=== PATIENT | male | born 1940 | race Caucasian/White ===

== ENCOUNTER → 2025-02-09 | Outpatient (CLI) | payer MEDICARE ==
[~2025-02-09] MED LIST: AEC81 PO; FISH1CAP49 PO; IOHEXOL 350 MG/ML 100ML INFUS..BTL IV ONE; LISI5TAB21 PO; METO25TA6 PO; MULT-660 PO; SPIR25TA6 PO; TAMS0.4C32 PO
== END | disposition home or self-care (01) ==
LOC: RAH 10:44
PROVIDERS: ATTEND Student in an Organized Health Care Education/Training Program
DX: Z53.9 Procedure and treatment not carried out, unspecified reason (principal); Z95.1 Presence of aortocoronary bypass graft
CPT/HCPCS: Q9967

== ENCOUNTER 2025-04-26 09:30 | Day surgery (SDC) | payer MEDICARE ==
[2025-04-23 08:31] LABS: BASOPHILS # (AUTO) 0.07 K/uL (0.00-0.20); BASOPHILS % (AUTO) 1.1 % (0.0-5.0); EOSINOPHILS # (AUTO) 0.18 K/uL (0.00-0.70); EOSINOPHILS % (AUTO) 2.9 % (0.0-8.0); HEMATOCRIT 44.9 % (42-54); IMMATURE GRANULOCYTE ABSOLUTE 0.01 K/uL (0-1); LYMPHOCYTES # (AUTO) 1.5 K/uL (1.0-4.8); LYMPHOCYTES % (AUTO) 24.7 % (21.0-51.0); MEAN CORPUSCULAR HEMOGLOBIN 29.7 pg (27.0-33.0); MEAN CORPUSCULAR HGB CONC 31.6 g/dL (32.0-36.0); MEAN CORPUSCULAR VOLUME 93.9 fL (79-99); MONOCYTES # (AUTO) 0.6 K/uL (0.1-1.0); MONOCYTES % (AUTO) 10.3 % (3.0-13.0); NEUTROPHILS # (AUTO) 3.8 K/uL (1.8-7.7); NEUTROPHILS % (AUTO) 60.8 % (40.0-77.0); PLATELET COUNT (AUTO) 121 K/uL (130-400); RED BLOOD CELL COUNT(AUTO) 4.78 MIL/uL (4.50-6.20); RED CELL DISTRIBUTION WIDTH 13.2 % (11.0-15.5); WHITE BLOOD COUNT (AUTO) 6.2 K/uL (4.8-10.8)
[2025-04-23 08:32] LABS: APPEARANCE,URINE CLOUDY (CLEAR); BILIRUBIN,URINE NEGATIVE (NEGATIVE); COLOR,URINE YELLOW (YELLOW); GLUCOSE, URINE (UA) NEGATIVE (NEGATIVE); KETONES,URINE NEGATIVE (NEGATIVE); LEUKOCYTE ESTERASE ,URINE 500 Leu/uL (NEGATIVE); NITRATE,URINE 2+ (NEGATIVE); OCCULT BLOOD,URINE SMALL (NEGATIVE); PH,URINE 5.5 (5.0-8.0); PROTEIN,URINE 30 mg/dL (NEGATIVE); UROBILINOGEN,URINE 0.2 mg/dL (0.2-1.0)
[2025-04-23 08:38] LABS: ADD UA MICROSCOPIC YES
[2025-04-23 08:41] LABS: BACTERIA,URINE MOD /HPF (None Seen); MUCUS,URINE RARE LPF (None Seen); WBC CLUMP MANY /HPF (0-1); WBC,URINE TNTC /HPF (0-1)
[2025-04-23 08:42] LABS: CREATININE 1.1 mg/dL (0.5-1.3); INR 1.07 (0.85-1.15); POTASSIUM 4.5 mmol/L (3.5-5.1); PROTHROMBIN TIME 11.3 SEC (9.6-11.6)
[2025-04-23 08:43] LABS: PARTIAL THROMBOPLASTIN TIME 27.4 SEC (26.3-35.5)
[2025-04-23 08:57] LABS: B-TYPE NATRIURETIC PEPTIDE 225 pg/mL (0-100)
--- NOTE | 2025-04-23 09:46 | HMCIMG ---
Exam Type: CHEST 1VW Clinical Information: pre-op Comparison: None Findings: The lungs are clear of infiltrates. The heart is enlarged in size. The bony and soft tissue structures of the chest are unremarkable. Left cardiac pacemaker is noted with leads in place. Impression: Clear lungs.
--- NOTE | 2025-04-23 10:10 | NUR ---
RE: UA RESULTS REPORTED UA RESULTS TO DR DIEGO, RECEIVED ORDERS TO CALL IN LEVAQUIN 500 MG PO DAILY X 7 DAYS INTO PATIENT'S PHARMACY AND REPEAT UA ON SATURDAY. CALLED PATIENT AND SPOKE WITH SPOUSE, INFORMED SPOUSE THAT ANTIBIOTIC WAS CALLED INTO PHARMACY FOR PATIENT TO START TAKING FOR UTI. SPOUSE VERBALIZED UNDERSTANDING AND WILL TOPPER PACKER MEDICATION TODAY.
[2025-04-23 10:46] VITALS: BP 157/78; PULSE 60; RESP 18; TEMP 97.6
--- NOTE | 2025-04-23 13:03 | EKG ---
[facility] Test Date: 2025-04-23 Test Time: 08:18:09 Pat Name: [facility] Department: [facility] Room: Gender: M Office Admin: [id number] : [id number] Requested By: Mehrdad DIEGO Order Number: [id number] Reading MD: Felix Moore Measurements Intervals [place] Rate: 60 P: 0 IL: 64 QRS: 203 QRSD: 169 T: -2 QT: 470 QTc: 470 Interpretive Statements Ventricular-paced rhythm Compared to ECG 10/29/2015 04:56:38 Sinus rhythm no longer present Ventricular premature complex(es) no longer present Intraventricular conduction delay no longer present Electronically Signed On 04-24-2025 10:10:28 CDT by Felix Moore Please click the below link to view image of tracing.
[~2025-04-26] VITALS: Ht 170.2 cm; Wt 84.5 kg
[2025-04-26] VITALS (12 sets, daily range): BP systolic 114–164; BP diastolic 48–98; PULSE 62–74; RESP 10–18; TEMP 97.7–98.1
[~2025-04-26 09:30] MED LIST changes: +AMLO-257 PO; +CARV25TA PO; +CHOL100034 PO; -FISH1CAP49 PO; +FLUT15.845 NS; +FLUT1BLS8 IH; -IOHEXOL 350 MG/ML 100ML INFUS..BTL IV ONE; +LISI10TA24 PO; -LISI5TAB21 PO; -METO25TA6 PO; +MONT-39 PO; -MULT-660 PO; +ROSU40TA88 PO; -SPIR25TA6 PO; +TAMS-55 PO; -TAMS0.4C32 PO; +TYLENOL ARTHRITIS PO
[2025-04-26] MEDS: 0.9%NACL 1000ML 1,000 ML IV SCH (10:15)
[2025-04-26] MEDS: GENTAmicin 80 MG/NS 100 ML PB 100 ML IV ONE (10:48)
[2025-04-26] MEDS ORDERED: GENTAmicin SULFate 80 MG/2 ML VIAL IV SCH (11:00)
[2025-04-26] MEDS ORDERED: SODIUM BICARB 50MEQ 50ML VIAL 50 ML ONE (12:17)
[2025-04-26] MEDS ORDERED: HEParin-NS 1,000 UNIT/500 ML 1,000 ML IV ONE (12:17)
[2025-04-26] MEDS ORDERED: HEParin 10,000 UNIT/10ML (1,000 UNIT/ML) VIAL ONE (12:17)
[2025-04-26] MEDS ORDERED: LIDOCAINE HCL 400MG/20ML VIAL ONE (12:17)
[2025-04-26] MEDS ORDERED: NITROGLYCERIN 50MG VIAL ONE (12:18)
[2025-04-26] MEDS ORDERED: IOHEXOL 350 MG/ML 100ML INFUS..BTL IV ONE (12:21)
[2025-04-26] MEDS ORDERED: FENTanyl CITRate PF 50 MCG/1 ML 2ML VIAL ONE (12:44)
[2025-04-26] MEDS ORDERED: MIDAZOLAM HCL 1 MG/ML 2ML VIAL ONE (12:44)
[2025-04-26] MEDS ORDERED: 0.9%NACL 1000ML 1,000 ML IV SCH (14:00)
--- NOTE | 2025-04-26 17:22 | NUR ---
URINARY: VOIDED 800CC CLEAR YELLOW URINE WITHOUT DIFFICULTY.
--- NOTE | 2025-04-26 17:49 | CCATH ---
PROCEDURES: * Left heart catheterization. * Selective right and left coronary arteriogram. * Multiple saphenous vein graft angiogram. * Left subclavian artery selective angiogram. * Subselective left internal mammary artery angiogram. * Conscious sedation. * Selective right and left common carotid artery angiogram. INDICATIONS: * Severe coronary artery disease. * Status post remote coronary artery bypass graft surgery x 3. * Severe bilateral carotid artery stenosis by noninvasive studies. * Ischemic cardiomyopathy. COMPLICATIONS: None. TOTAL CONTRAST: 85 mL. DESCRIPTION OF PROCEDURE: The patient was taken to the cardiac catheterization lab after appropriate operative consents were signed. He was prepped and draped in the usual fashion. After conscious sedation was administered, the right common femoral artery region was infiltrated with 2% Xylocaine without epinephrine. A 6-Jamaican sheath was advanced in retrograde fashion by modified Seldinger technique. There was significant calcification and tortuosity as well as stenosis in the aortoiliac junction and we elected to utilize an exchange wire for the rest of the procedure. At this point, an FL4, 6-Jamaican catheter was advanced and selectively engaged in the ostial of the left main. This was imaged in multiplane. The left main coronary artery was a multi-sized vessel. It was heavily calcified. It had distal tapering at 80% before bifurcating into an LAD and a circumflex. The circumflex coronary artery was a moderately sized vessel that had an ostial calcified 80% lesion before giving rise to 2 tiny obtuse marginal branches and an ongoing circ. The patient had a stent that was patent in the distal circ. There was evidence of competitive flow to a marginal branch seen distally. The LAD was a large vessel that was free of disease and gave rise to several diagonals and septal perforators. The catheter was withdrawn and an FR4 6-Jamaican catheter was advanced and selectively engaged in the ostium of the RCA. This was imaged identifying total chronic occlusion in the proximal portion of the vessel. The catheter was then engaged in the saphenous vein graft to RCA system. This was a large graft supplying PDA with good flow. The catheter was then engaged in the saphenous vein graft to the distal OM. This was a large vein graft supplying a branching distal OM with good flow. Selective angiography of the left subclavian artery documented a patent left subclavian artery; however, it has significant calcification and tortuosity. 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 There was no evidence of filling of the mammary artery at any level. At this point, the catheter was withdrawn and engaged in the left common carotid artery. This was imaged in multiplane. This was a tortuous large vessel that was free of disease in its proximal and mid portion. At the level of the bifurcation, the distal internal carotid artery and the proximal left internal carotid artery had an ulcerated hazy 80% plaque. Both left internal and left external carotid arteries were patent. The intracerebral circulation was normal. The catheter was then engaged in the left common carotid artery. This was imaged in multiplane. This was a moderately large vessel that bifurcated to an internal and external carotid artery. The distal common carotid artery and the proximal right internal carotid artery had a critical 90% lesion. The patient had normal intracerebral circulation. At this point, the procedure was completed, Perclose was utilized with good hemostasis. The patient tolerated the procedure well and left the cardiac catheterization lab in stable condition. FINAL IMPRESSION: * Severe [place] coronary artery disease. * Patent saphenous vein graft to the PDA and saphenous vein graft to the distal OM. * Occluded TYLER to the LAD. * Severe bilateral carotid artery stenosis. PLAN: The patient's management was complex. He is a frail 85-year-old man. 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 Moreover, he has had multiple GI bleeds in the past which precludes the utilization of dual antiplatelet therapy. He is also not a candidate for anticoagulation. I will have a scott and detailed discussion with the patient and the family and we will make additional decisions after that. TID: [id number] RECEIPT: [id number]
--- NOTE | 2025-04-26 18:00 | NUR ---
URINARY: VOIDED 600CC CLEAR YELLOW COLOR URINE PER URINAL WITHOUT DIFFICULTY.
--- NOTE | 2025-04-26 19:00 | NUR ---
URINARY: VOIDED 300 CC CLEAR YELLOW COLOR URINE PER URINAL WITHOUT DIFFICULTY.
== END 2025-04-26 19:40 | disposition home or self-care (01) ==
LOC: DAH 09:30
PROVIDERS: ATTEND Internal Medicine Cardiovascular Disease
DX: I65.23 Occlusion and stenosis of bilateral carotid arteries (principal); I25.10 Atherosclerotic heart disease of native coronary artery without angina pectoris; I25.810 Atherosclerosis of coronary artery bypass graft(s) without angina pectoris; I25.5 Ischemic cardiomyopathy; I25.82 Chronic total occlusion of coronary artery; I25.84 Coronary atherosclerosis due to calcified coronary lesion; I11.0 Hypertensive heart disease with heart failure; I50.22 Chronic systolic (congestive) heart failure; E78.2 Mixed hyperlipidemia; Z88.0 Allergy status to penicillin; Z88.8 Allergy status to other drugs, medicaments and biological substances; Z79.82 Long term (current) use of aspirin; Z79.899 Other long term (current) drug therapy
CPT/HCPCS: 80048; 83880; 85025; 85610; 85730; 87086 ×2; 87186; 81001; 36415; 71045; 93005; 93459; 36223; 99156; 99157 ×3; C1769 ×2; C1894; C1760; Q9965; J3010; J3490 ×3; J7030; J2250; J1644; J1580; Q9967; A4215; A4222; A4221; A4663; A4216; A4606; A4223 ×3; 36215; 36222; 75710; 96360; 96361